=== PATIENT | female | born 1990 | race African-American/Black ===

== ENCOUNTER 2018-06-13 09:01 | Outpatient (CLI) | payer OTHER | END 2018-06-13 09:02 | disposition home or self-care (01) | LOC: BICULT 09:01 | PROVIDERS: ATTEND Family Medicine | DX: Z34.82 Encounter for supervision of other normal pregnancy, second trimester (principal); Z3A.20 20 weeks gestation of pregnancy | CPT/HCPCS: 76805 ==

== ENCOUNTER 2018-10-10 10:11 | Day surgery (SDC) | payer OTHER ==
[2018-10-10 11:17] VITALS: BMI 35.7
[2018-10-10 11:19] LABS: Hemoglobin 11.4 g/dL (12.0-16.0); Mean Corpuscular HGB CONC 34.2 g/dL (32.0-36.0); Mean Corpuscular Hemoglobin 29.2 pg (27.0-31.0); Mean Corpuscular Volume 85.5 fL (78.0-98.0); Mean Platelet Volume 8.1 fL (7.4-10.4); Platelet Count 162 thou/uL (130-400); RBC Distribution Width 11.4 % (11.5-14.5); Red Blood Cell (RBC) Count 3.89 mill/uL (4.20-5.40); White Blood Cell (WBC) Count 5.8 thou/uL (4.8-10.8)
[2018-10-10 11:40] LABS: ALT (SGPT) 22 U/L (8-55); AST (SGOT) 20 U/L (5-34); Albumin 3.3 g/dL (3.5-5.0); Alkaline Phosphatase 113 U/L (40-150); Anion Gap 12 mmol/L (10-20); BUN (Urea Nitrogen) 4 mg/dL (7.0-18.7); Bilirubin, Total 0.5 mg/dL (0.2-1.2); Calc. Creatinine Clearance 162 mL/min (70-130); Calcium 10.1 mg/dL (7.8-10.44); Carbon Dioxide 23 mmol/L (22-29); Chloride 102 mmol/L (98-107); Estimated GFR-MDRD Greater than 90; Globulin 3.4 g/dL (2.4-3.5); Glucose 108 mg/dL (70-105); Potassium 3.4 mmol/L (3.5-5.1); Protein, Total 6.7 g/dL (6.0-8.3); Sodium 134 mmol/L (136-145)
--- NOTE | 2018-10-10 13:48 | ULT ---
OBSTETRIC SONOGRAM: SONOGRAPHIC BIOPHYSICAL PROFILE EXAM: HISTORY: evaluation. Third trimester gestation. distress. FINDINGS: Multiple transabdominal sonographic views of the gravid uterus show a single intrauterine gestation, in cephalic presentation. The cervix is partially obscured by the cranium. The cervix is clos ed and 5.1 cm. Grade 2 placenta is anterior. Amniotic fluid is within normal limits. Advanced feta l age limits anatomic detail. Air-fluid level index is 7.8. There is a 3.6 cm pocket at the left up per quadrant. Heart motion is at 143 beats per minute. Measurements are as follows: BIPARIETAL DIAMETER: 36 weeks 0 days HEAD CIRCUMFERENCE: 37 weeks 3 days ABDOMINAL CIRCUMFERENCE: 37 weeks 2 days FEMUR LENGTH: 36 weeks 5 days ESTIMATED WEIGHT: 3094 g (6 lbs 13 oz) HADLOCK: 51% Good movement, tone, and breathing movement were demonstrated. IMPRESSION: 1. Single viable intrauterine gestation, with estimated gestational age based on today's sonogram of 37 weeks 0 days. 2. Sonographic biophysical profile score 8/8. POS: [facility]
== END 2018-10-10 14:15 | disposition home or self-care (01) ==
LOC: L&D/OP 10:11
PROVIDERS: ATTEND Family Medicine
DX: O16.3 Unspecified maternal hypertension, third trimester (principal); O99.820 Streptococcus B carrier state complicating pregnancy; O99.283 Endocrine, nutritional and metabolic diseases complicating pregnancy, third trimester; E89.0 Postprocedural hypothyroidism; Z3A.37 37 weeks gestation of pregnancy; Z79.899 Other long term (current) drug therapy
CPT/HCPCS: 36415; 76805; 76819; 80053; 84156; 85027; 99283

== ENCOUNTER 2018-10-22 22:00 | Inpatient (IN) | payer OTHER ==
[2018-10-23] MEDS ORDERED: Butorphanol Tartrate 1 MG/ML VIAL SLOW IVP PRN (02:17)
[2018-10-23] MEDS ORDERED: NS / Oxytocin 40 units/1000ml 1,000 ML IV PRN (02:17)
[2018-10-23] MEDS ORDERED: Carboprost 250 MCG/ML AMP IM PRN (02:17)
[2018-10-23] MEDS ORDERED: HYDROcodone/Acetaminophen 5/325 mg Tablet PO PRN ×3 (02:17→11:07)
[2018-10-23] MEDS ORDERED: NS w/ Oxytocin 10 units 500 ML IV SCH ×2 (02:17)
[2018-10-23] MEDS ORDERED: Diphenoxylate HCl/Atropine Tablet PO PRN (02:17)
[2018-10-23] MEDS ORDERED: Ibuprofen 800 MG TAB PO PRN (02:17)
[2018-10-23] MEDS ORDERED: Lidocaine 1% (PF) 30 ML VIAL SC PRN (02:17)
[2018-10-23] MEDS ORDERED: Misoprostol 200 MCG TAB PR PRN (02:17)
[2018-10-23] MEDS ORDERED: Ondansetron PF 4 MG/2 ML Vial IVP PRN ×2 (02:17→11:07)
[2018-10-23 02:25] VITALS: BMI 34.9
[2018-10-23] MEDS ORDERED: Penicillin G Potassium 5 MILL.UNITS in Sodium Chloride 0.9% 100 ML IVPB SCH (02:30)
[2018-10-23 03:17] LABS: Amphetamine Not Detected (NotDetected); Barbiturates Screen Not Detected (NotDetected); Benzodiazepine Screen Not Detected (NotDetected); Cocaine Metabolite Screen Not Detected (NotDetected); Medtox Control Line Valid? VALID (VALID); Medtox Reader # READER 1; Methadone Not Detected (NotDetected); Methamphetamine Not Detected (NotDetected); Opiate Screen Not Detected (NotDetected); Oxycodone Screen Not Detected (NotDetected); Phencyclidine (PCP) Not Detected (NotDetected); THC/Cannabinoid Screen Not Detected (NotDetected); Tricyclic Screen Not Detected (NotDetected)
[2018-10-23] MEDS: Lactated Ringer's 1,000 ML IV SCH ×2 (03:20→12:36)
[2018-10-23 03:39] LABS: Mean Corpuscular HGB CONC 35.7 g/dL (32.0-36.0); Mean Corpuscular Hemoglobin 30.1 pg (27.0-31.0); Mean Corpuscular Volume 84.4 fL (78.0-98.0); Mean Platelet Volume 8.1 fL (7.4-10.4); Platelet Count 166 thou/uL (130-400); RBC Distribution Width 11.7 % (11.5-14.5); Red Blood Cell (RBC) Count 3.66 mill/uL (4.20-5.40)
[2018-10-23 04:19] LABS: HBSAg Index 0.34 S/CO (0-0.99); Hep B Surf Ag Non-Reactive S/CO (NonReactive)
[2018-10-23 06:35] LABS: Syphilis Antibody Nonreactive (Nonreactive); Syphilis Antibody Index 0.02 S/CO (<1.00 Non-Reactive)
[2018-10-23] MEDS: Penicillin G 2.5 MILL.units 2.5 MILL.UNITS in Premix Bag 1 BAG IVPB SCH ×2 (07:42→12:36)
[2018-10-23] MEDS ORDERED: NS / Oxytocin 40 units/1000ml 1,000 ML IV SCH (11:07)
[2018-10-23] MEDS ORDERED: Bisacodyl 10 MG SUPP PR PRN (11:07)
[2018-10-23] MEDS ORDERED: diphenhydrAMINE 25 MG CAP PO PRN (11:07)
[2018-10-23] MEDS ORDERED: Milk Of Magnesia 30 ML UDCUP PO PRN (11:07)
[2018-10-23] MEDS ORDERED: Lanolin Ointment 7 GM TUBE TOP PRN (11:07)
[2018-10-23] MEDS ORDERED: Benzocaine/Menthol 20-0.5% 60 ML CAN TOP PRN (11:07)
[2018-10-23] MEDS: Ibuprofen 800 MG TAB PO SCH (17:19)
[2018-10-23] MEDS: Ferrous Sulfate 325 MG TAB PO SCH (17:23)
[2018-10-23] MEDS: Docusate Calcium (SURFAK) 240 MG CAP PO SCH (21:28)
[2018-10-24] MEDS: Ibuprofen 800 MG TAB PO SCH ×4 (00:27→14:56)
[2018-10-24 07:42] LABS: Hemoglobin 10.4 g/dL (12.0-16.0); Mean Corpuscular HGB CONC 35.6 g/dL (32.0-36.0); Mean Corpuscular Hemoglobin 30.4 pg (27.0-31.0); Mean Corpuscular Volume 85.4 fL (78.0-98.0); Mean Platelet Volume 8.4 fL (7.4-10.4); Platelet Count 154 thou/uL (130-400); RBC Distribution Width 11.7 % (11.5-14.5); Red Blood Cell (RBC) Count 3.42 mill/uL (4.20-5.40); White Blood Cell (WBC) Count 7.2 thou/uL (4.8-10.8)
[2018-10-24] MEDS: Ferrous Sulfate 325 MG TAB PO SCH (08:16)
[2018-10-24] MEDS: Docusate Calcium (SURFAK) 240 MG CAP PO SCH (08:16)
[2018-10-24] MEDS ORDERED: Prenatal Vitamin 1 TAB PO SCH (09:00)
[2018-10-24 17:24] VITALS: BP 131/86; TEMP 98.7
== END 2018-10-24 17:20 | disposition home or self-care (01) | DRG 807 ==
LOC: L&D 10-23 02:08 → 3SW 10-23 11:08
PROVIDERS: ADMIT Family Medicine; ATTEND Family Medicine
PROC: 10E0XZZ Delivery of Products of Conception, External Approach (ICD-10-PCS; principal; 2018-10-23)
PROC: 3E033VJ Introduction of Other Hormone into Peripheral Vein, Percutaneous Approach (ICD-10-PCS; 2018-10-23)
DX: O99.824 Streptococcus B carrier state complicating childbirth (principal); O13.4 Gestational [pregnancy-induced] hypertension without significant proteinuria, complicating childbirth; O69.81X0 Labor and delivery complicated by cord around neck, without compression, not applicable or unspecified; Z3A.39 39 weeks gestation of pregnancy; Z37.0 Single live birth
CPT/HCPCS: 36415; 80306; 85027; 86780; 86850; 86900; 86901; 87340; J2001; J2540; J7050

== ENCOUNTER 2019-07-23 20:01 | Emergency (ER) | payer OTHER ==
[2019-07-23 20:43] LABS: Bilirubin Negative (Negative); Blood, Urine Negative (Negative); Clarity Clear (Clear); Glucose, Urine (Dipstick) Normal (Negative); Leukocyte Negative Leu/uL (Negative); Nitrite Negative (Negative); Protein, Urine (Dipstick) Negative (Neg-Trace)
[2019-07-23 20:44] LABS: Pregnancy Test - Urine (BHCG) Negative (Negative); Pregu Control Background? CLEAR/WHITE (CLR/WHITE); Pregu Control Bar Appear? YES (CONTROL BAR); Specific Gravity 1.016 (1.002-1.036)
[2019-07-23 20:46] LABS: Hemoglobin 11.9 g/dL (12.0-16.0); Mean Corpuscular HGB CONC 34.4 g/dL (32.0-36.0); Mean Corpuscular Hemoglobin 27.1 pg (27.0-31.0); Mean Corpuscular Volume 78.7 fL (78.0-98.0); Mean Platelet Volume 8.4 fL (7.4-10.4); Platelet Count 199 thou/uL (130-400); RBC Distribution Width 12.3 % (11.5-14.5); Red Blood Cell (RBC) Count 4.42 mill/uL (4.20-5.40); White Blood Cell (WBC) Count 4.7 thou/uL (4.8-10.8)
[2019-07-23 21:04] LABS: Eosinophils 2 % (0-10); Lymphocytes 54 % (21-51); MDiff Complete? YES; Monocytes 6 % (0-10); Neutrophil 38 % (42-75)
[2019-07-23 21:05] LABS: ALT (SGPT) 20 U/L (8-55); AST (SGOT) 19 U/L (5-34); Alkaline Phosphatase 128 U/L (40-150); Anion Gap 10 mmol/L (10-20); BUN (Urea Nitrogen) 6 mg/dL (7.0-18.7); Bilirubin, Total 0.6 mg/dL (0.2-1.2); Calc. Creatinine Clearance 0 mL/min (70-130); Carbon Dioxide 29 mmol/L (22-29); Chloride 104 mmol/L (98-107); Estimated GFR-MDRD Greater than 90; Globulin 2.6 g/dL (2.4-3.5); Glucose 103 mg/dL (70-105); Lipase 32 U/L (8-78); Potassium 3.2 mmol/L (3.5-5.1); Protein, Total 6.6 g/dL (6.0-8.3); Sodium 140 mmol/L (136-145)
== END 2019-07-23 22:10 | disposition home or self-care (01) ==
LOC: ERS 20:01
DX: R10.30 Lower abdominal pain, unspecified (principal); I10 Essential (primary) hypertension; F32.9 Major depressive disorder, single episode, unspecified; Z87.891 Personal history of nicotine dependence
CPT/HCPCS: 36415; 80053; 81003; 81025; 83690; 85025; 99284

== ENCOUNTER 2019-11-18 14:55 | Emergency (ER) | payer OTHER, SELFPAY ==
--- NOTE | 2019-11-18 16:00 | RAD ---
RIGHT KNEE 4 VIEWS: HISTORY: Injury and right knee pain. FINDINGS/IMPRESSION: No fracture or dislocation is seen. No joint effusion is present. POS: [facility]
== END 2019-11-18 16:04 | disposition home or self-care (01) ==
LOC: ERS 14:55
DX: S86.911A Strain of unspecified muscle(s) and tendon(s) at lower leg level, right leg, initial encounter (principal); I10 Essential (primary) hypertension; F32.9 Major depressive disorder, single episode, unspecified; Z87.891 Personal history of nicotine dependence; X58.XXXA Exposure to other specified factors, initial encounter

== ENCOUNTER 2019-12-27 12:01 | Emergency (ER) | payer MEDICAID, SELFPAY ==
[2019-12-27 12:34] LABS: #Basophils 0.1 thou/uL (0.0-0.2); #Lymphocytes 2.8 thou/uL (1.20-3.40); #Monocytes 0.6 thou/uL (0.11-0.59); %Basophils 0.6 % (0.0-1.0); %Eosinophils 0.5 % (0.0-10.0); %Lymphocytes 29.5 % (21.0-51.0); %Monocytes 6.6 % (0.0-10.0); %Neutrophils 62.8 % (42.0-75.0); Hemoglobin 14.9 g/dL (12.0-16.0); Mean Corpuscular HGB CONC 36.1 g/dL (32.0-36.0); Mean Corpuscular Hemoglobin 27.6 pg (27.0-31.0); Mean Corpuscular Volume 76.4 fL (78.0-98.0); Platelet Count 369 thou/uL (130-400); RBC Distribution Width 12.8 % (11.5-14.5); Red Blood Cell (RBC) Count 5.39 mill/uL (4.20-5.40); White Blood Cell (WBC) Count 9.5 thou/uL (4.8-10.8)
[2019-12-27 12:56] LABS: ALT (SGPT) 53 U/L (8-55); AST (SGOT) 50 U/L (5-34); Albumin 5.2 g/dL (3.5-5.0); Alkaline Phosphatase 249 U/L (40-110); Anion Gap 21 mmol/L (10-20); BUN (Urea Nitrogen) 16 mg/dL (7.0-18.7); Calc. Creatinine Clearance 0 mL/min (70-130); Calcium 10.9 mg/dL (7.8-10.44); Carbon Dioxide 19 mmol/L (22-29); Chloride 99 mmol/L (98-107); Estimated GFR-MDRD Greater than 90; Globulin 3.6 g/dL (2.4-3.5); Glucose 89 mg/dL (70-105); Potassium 3.4 mmol/L (3.5-5.1); Protein, Total 8.8 g/dL (6.0-8.3); Sodium 136 mmol/L (136-145)
[2019-12-27 13:04] LABS: BHCG - Serum POSITIVE (NEGATIVE)
[2019-12-27 13:05] LABS: Pregs Control Background? CLEAR/WHITE (CLR/WHITE); Pregs Control Bar Appear? YES (CONTROL BAR)
[2019-12-27 13:12] LABS: Thyroid Stimulating Hormone Less than 0.0025 uIU/mL (0.35-4.94)
--- NOTE | 2019-12-27 14:32 | ULT ---
Exam: Transabdominal and endovaginal pelvic ultrasound HISTORY: patient. Abdominal pain. COMPARISON: None TECHNIQUE: Transabdominal and endovaginal imaging of the pelvis is performed. Ovaries are interrogate d with grayscale, color flow, Doppler imaging and spectral wave form analysis FINDINGS: Uterus: No myometrial masses. Uterus measurin.3 x 10.2 x 6.2 cm. Endometrium: Within the endometrium, there is a gestational sac, yolk sac and pole. [place]-rump length is 0.54 cm, corresponding to gestational age of 6 weeks 2 days heart tones: 118 bpm Subchorionic hemorrhage: None . Free fluid: None Right ovary: Normal echotexture Right ovary measurement: 1.9 x 1.5 x 2.6 cm Left ovary: Normal echotexture. There is a 2 cm dominant follicle in the left ovary. Left ovary measurements: 4.3 x 2.4 x 2.5 cm Ovarian Doppler: There is vascular flow to the left and right ovary. IMPRESSION: Single intrauterine gestation with heart tones. Gestational age by crown-rump lengt h is 6 weeks 2 days.
[2019-12-27 14:44] LABS: Bacteria/HPF 3+ HPF (None Seen); Bilirubin Negative (Negative); Blood, Urine Trace (Negative); Clarity Turbid (Clear); Glucose, Urine (Dipstick) Normal (Negative); Leukocyte 500 Leu/uL (Negative); Nitrite Negative (Negative); Protein, Urine (Dipstick) 70 mg/dL (Neg-Trace); Squamous Epithelial 21-50 HPF (0-3); Urobilinogen Normal mg/dL (Less than 2)
== END 2019-12-27 15:18 | disposition home or self-care (01) ==
LOC: ERS 12:01
DX: O23.41 Unspecified infection of urinary tract in pregnancy, first trimester (principal); O99.89 Other specified diseases and conditions complicating pregnancy, childbirth and the puerperium; R00.0 Tachycardia, unspecified; O99.281 Endocrine, nutritional and metabolic diseases complicating pregnancy, first trimester; O16.1 Unspecified maternal hypertension, first trimester; O99.341 Other mental disorders complicating pregnancy, first trimester; F32.9 Major depressive disorder, single episode, unspecified; Z3A.01 Less than 8 weeks gestation of pregnancy; Z87.891 Personal history of nicotine dependence
CPT/HCPCS: 76856; 80053; 81003; 81015; 84443; 84702; 84703; 85025; 87086; 93005; 94760; 96360; 96361

== ENCOUNTER 2020-05-06 11:24 | Inpatient (IN) | payer OTHER ==
[2020-05-06 11:57] VITALS: BMI 31.1
[2020-05-06 12:29] LABS: #Eosinphils 0.1 thou/uL (0.0-0.7); #Lymphocytes 1.7 thou/uL (1.20-3.40); #Monocytes 0.5 thou/uL (0.11-0.59); #Neutrophils 3.8 thou/uL (1.40-6.50); %Basophils 0.6 % (0.0-1.0); %Lymphocytes 27.7 % (21.0-51.0); %Monocytes 7.9 % (0.0-10.0); %Neutrophils 62.8 % (42.0-75.0); Hemoglobin 11.6 g/dL (12.0-16.0); Mean Corpuscular HGB CONC 35.7 g/dL (32.0-36.0); Mean Corpuscular Hemoglobin 29.9 pg (27.0-31.0); Mean Corpuscular Volume 83.7 fL (78.0-98.0); Mean Platelet Volume 7.9 fL (7.4-10.4); Platelet Count 156 thou/uL (130-400); RBC Distribution Width 11.6 % (11.5-14.5); Red Blood Cell (RBC) Count 3.87 mill/uL (4.20-5.40)
[2020-05-06 12:49] LABS: ALT (SGPT) 9 U/L (8-55); AST (SGOT) 11 U/L (5-34); Albumin 3.4 g/dL (3.5-5.0); Alkaline Phosphatase 124 U/L (40-110); Anion Gap 8 mmol/L (10-20); BUN (Urea Nitrogen) 6 mg/dL (7.0-18.7); Bilirubin, Total 0.6 mg/dL (0.2-1.2); Calc. Creatinine Clearance 185 mL/min (70-130); Calcium 8.7 mg/dL (7.8-10.44); Carbon Dioxide 24 mmol/L (22-29); Chloride 107 mmol/L (98-107); Estimated GFR-MDRD Greater than 90; Globulin 2.7 g/dL (2.4-3.5); Glucose 102 mg/dL (70-105); Potassium 3.1 mmol/L (3.5-5.1); Protein, Total 6.1 g/dL (6.0-8.3); Sodium 136 mmol/L (136-145)
[2020-05-06 13:08] LABS: Free T4 (Free Thyroxine) 1.48 ng/dL (0.70-1.48); Thyroid Stimulating Hormone Less than 0.0025 uIU/mL (0.35-4.94)
--- NOTE | 2020-05-06 13:20 | ULT ---
Exam: Limited OB ultrasound HISTORY: GUILLERMO, growth. COMPARISON: None. TECHNIQUE: Transabdominal imaging of the gravid uterus is performed. FINDINGS: Limited evaluation of the cervix. presentation: Cephalic. Anterior placenta. No evidence of previa. Amniotic fluid index: 11.8 cm. heart tones: 140 bpm. biometry: BPD 6.50 cm, 6 weeks 2 days Head circumference 23.20 cm, 25 weeks 2 days Abdominal circumference 21.82 cm, 26 weeks 2 days Femur length 4.63 cm, 25 weeks 3 days Estimated weight is 862 g. Average age by sonography is 25 weeks 5 days. IMPRESSION: 1. Cephalic presentation. 2. Amniotic fluid index is 11.8 cm. 3. Average age by sonography is 25 weeks 5 days. Estimated weight is 862 g. 4. Limited evaluation of the cervix due to shadowing from cephalic presentation. Transcribed Date/Time: 05/06/2020 1:26 PM
[2020-05-06] MEDS ORDERED: Betamet Acet/Betamet Na Ph 30 MG/5 ML VIAL ONE (14:26)
[2020-05-06] MEDS ORDERED: Betamet Acet/Betamet Na Ph 30 MG/5 ML VIAL IM SCH (14:30)
[2020-05-06] MEDS: hydrALAZINE 20 MG/ML VIAL SLOW IVP PRN ×2 (16:06→16:28)
[2020-05-06] MEDS ORDERED: Docusate 100 MG CAP PO PRN (16:07)
[2020-05-06] MEDS ORDERED: Acetaminophen 500 MG TAB PO PRN (16:07)
[2020-05-06] MEDS ORDERED: Promethazine HCl 25 MG/ML VIAL IM PRN (16:07)
[2020-05-06] MEDS ORDERED: Ondansetron PF 4 MG/2 ML Vial IVP PRN (16:07)
[2020-05-06] MEDS ORDERED: hydrALAZINE 20 MG/ML VIAL SLOW IVP PRN ×2 (16:07→17:16)
[2020-05-06] MEDS ORDERED: Lactated Ringer's 1,000 ML IV SCH (16:15)
[2020-05-06 17:35] LABS: HBSAg Index 0.15 S/CO (0-0.99); Hep B Surf Ag Non-Reactive S/CO (NonReactive)
[2020-05-06 17:37] LABS: Syphilis Antibody Nonreactive (Nonreactive); Syphilis Antibody Index 0.02 S/CO (<1.00 Non-Reactive)
[2020-05-06] MEDS ORDERED: Magnesium Sulfate 20 gm/500 ml 20 GM/500 ML BAG ONE (18:45)
[2020-05-06] MEDS ORDERED: Labetalol HCl 100 MG/20 ML VIAL SLOW IVP PRN (19:29)
[2020-05-06 19:38] VITALS: BP 171/102
[2020-05-06 20:06] LABS: Amphetamine Not Detected (NotDetected); Barbiturates Screen Not Detected (NotDetected); Benzodiazepine Screen Not Detected (NotDetected); Cocaine Metabolite Screen Not Detected (NotDetected); Medtox Control Line Valid? VALID (VALID); Medtox Reader # READER 4; Methadone Not Detected (NotDetected); Methamphetamine Not Detected (NotDetected); Opiate Screen Not Detected (NotDetected); Oxycodone Screen Not Detected (NotDetected); Phencyclidine (PCP) Not Detected (NotDetected); THC/Cannabinoid Screen Not Detected (NotDetected); Tricyclic Screen Not Detected (NotDetected)
[2020-05-06] MEDS ORDERED: Labetalol 100 MG TAB PO SCH (21:00)
[2020-05-07] MEDS ORDERED: Labetalol 100 MG TAB PO SCH (03:00)
[2020-05-07] MEDS ORDERED: Betamet Acet/Betamet Na Ph 30 MG/5 ML VIAL IM SCH (14:00)
== END 2020-05-06 21:30 | disposition short-term general hospital (02) | DRG 833 ==
LOC: L&D/OP 11:24 → L&D 16:29
PROVIDERS: ADMIT Family Medicine; ATTEND Family Medicine
DX: O99.282 Endocrine, nutritional and metabolic diseases complicating pregnancy, second trimester (principal); E02 Subclinical iodine-deficiency hypothyroidism; Z3A.25 25 weeks gestation of pregnancy
CPT/HCPCS: 36415; 76815; 80053; 80306; 82570; 84156; 84439; 84443; 84481; 85025; 86780; 86850; 86900; 86901; 87340; J0360; J0702; J3475

== ENCOUNTER 2020-07-09 09:27 | Day surgery (SDC) | payer OTHER ==
[2020-07-09 10:55] VITALS: BMI 33.5
== END 2020-07-09 11:10 | disposition left against medical advice (07) ==
LOC: L&D/OP 09:27
PROVIDERS: ATTEND Family Medicine
DX: O99.89 Other specified diseases and conditions complicating pregnancy, childbirth and the puerperium (principal); R03.0 Elevated blood-pressure reading, without diagnosis of hypertension; Z3A.00 Weeks of gestation of pregnancy not specified
CPT/HCPCS: 99282

== ENCOUNTER 2020-07-20 12:17 | Inpatient (IN) | payer OTHER ==
[2020-07-20 13:42] VITALS: BMI 33.5
[2020-07-20 14:27] LABS: Creatinine, Urine 28.11 mg/dL (47-110); Protein, Urine Random Quant Less than 10 mg/dL (1-14)
--- NOTE | 2020-07-20 15:09 | ULT ---
[facility] OB Ltd ULTRASOUND BIOPHYSICAL PROFILE AND DOPPLER: HISTORY: Hypertension, superimposed preeclampsia FINDINGS: A single live intrauterine gestation is seen with measurements corresponding to an estimated gestatio nal age of 33 weeks 4 daysand SOMMER at 09/03/2020. The estimated weight measures 2733 g or 6 pounds ounces (32% by Hadlock criteria). biometry: BPD: 9.23 cm, 37 weeks 3 days HC: 29.05 cm, 32 weeks 0 days AC: 32.7 cm, 36 weeks 4 days FL: 6.71 cm, 34 weeks 4 days heart rate: 141bpm Placenta: Anterior Placenta previa: No GUILLERMO: 18cm OB biophysical profile: tone: 0 breathin movements: 0 Amniotic fluid: 2 The peak systolic velocities in the umbilical artery measures 72 cm/s and the placental end, 88 seen per second in the middle and 66 cm/s and the end and S/D ratios of 2.13, 3.07 and 2.12 respectively. IMPRESSION: Single live intrauterine gestation of 33 weeks 4 daysestimated gestational age and SOMMER at 09/03/2020 The ultrasound biophysical profile score is 2 out of 8. A verbal report was given by the course instructor to the patient's nurse Anisa in labor and delivery, at t he time of the exam.
[2020-07-20] MEDS ORDERED: Ondansetron PF 4 MG/2 ML Vial IVP PRN ×3 (15:17→21:11)
[2020-07-20] MEDS ORDERED: hydrALAZINE 20 MG/ML VIAL SLOW IVP PRN (15:17)
[2020-07-20] MEDS ORDERED: Promethazine HCl 25 MG/ML VIAL IM PRN ×3 (15:17→21:11)
[2020-07-20] MEDS ORDERED: Lactated Ringer's 1,000 ML IV SCH (15:30)
[2020-07-20] MEDS ORDERED: Bicitra 30 ML UDCUP PO SCH (15:30)
[2020-07-20] MEDS ORDERED: CEFAZOLIN 2 GM in Premix Bag 1 BAG IVPB SCH (15:30)
[2020-07-20 15:55] LABS: Hemoglobin 12.2 g/dL (12.0-16.0); Mean Corpuscular HGB CONC 35.8 g/dL (32.0-36.0); Mean Corpuscular Hemoglobin 30.1 pg (27.0-31.0); Mean Corpuscular Volume 84.1 fL (78.0-98.0); Mean Platelet Volume 8.5 fL (7.4-10.4); Platelet Count 176 thou/uL (130-400); Red Blood Cell (RBC) Count 4.05 mill/uL (4.20-5.40); White Blood Cell (WBC) Count 7.5 thou/uL (4.8-10.8)
[2020-07-20] MEDS ORDERED: Oxytocin 10 UNITS/ML VIAL ONE ×2 (15:55→17:19)
[2020-07-20] MEDS ORDERED: PHENYLEPHRINE-NS 100 MCG/ML 10 ML SYRINGE ONE (15:55)
[2020-07-20] MEDS ORDERED: EPHEDRINE 25 MG/5 ML SYRINGE ONE (15:55)
[2020-07-20] MEDS ORDERED: Ondansetron PF 4 MG/2 ML Vial ONE (15:55)
[2020-07-20] MEDS ORDERED: Ketorolac Tromethamine 30 MG/ML VIAL ONE (15:55)
[2020-07-20] MEDS ORDERED: HYDROmorphone 2 MG/ML VIAL SLOW IVP PRN (16:15)
[2020-07-20] MEDS ORDERED: Meperidine HCl/PF 25 MG/ML VIAL SLOW IVP PRN (16:15)
[2020-07-20] MEDS ORDERED: Ondansetron HCl/PF 4 MG/2 ML Vial IVP PRN (16:15)
[2020-07-20] MEDS ORDERED: L&D-Morphine 4 MG/ML VIAL SLOW IVP PRN (16:15)
[2020-07-20] MEDS ORDERED: Lidocaine 1% PF 5 ML VIAL ONE ×2 (16:30→16:36)
[2020-07-20 16:36] LABS: Syphilis Antibody Nonreactive (Nonreactive); Syphilis Antibody Index 0.03 S/CO (<1.00 Non-Reactive)
[2020-07-20] MEDS ORDERED: Succinylcholine Chloride 20 MG/ML 10 ml SYRINGE FS ONE (16:41)
[2020-07-20] MEDS ORDERED: PROPOFOL 200 MG/20 ML VIAL ONE (16:41)
[2020-07-20] MEDS ORDERED: Carboprost 250 MCG/ML AMP ONE ×2 (16:54→16:55)
[2020-07-20] MEDS ORDERED: Fentanyl 100 MCG/2 ML VIAL ONE ×2 (17:20→17:43)
[2020-07-20 17:35] LABS: Actual Bicarbonate (HCO3a) 26.5 mEq/L (22-28); Base Excess (BEa) -0.4 mEq/L (-2.0 to +3.0)
[2020-07-20 17:38] LABS: Actual Bicarbonate (HCO3v) 25 mEq/L (22-28); Base Excess -1.4 mEq/L (-2.0 to +3.0); pH (Cord, venous) 7.34 (7.32-7.43)
--- NOTE | 2020-07-20 17:40 | PDOC.OPDEL ---
OB Operative/Delivery Note Delivery Dr/Surgeon: Carlos (resident)Terrell Pre-Delivery Diagnosis: scheduled section (after BPP of 12/16.) Procedure/Post Delivery Dx: primary low transverse CS Weeks gestation: 36 (36.3 wga) Anesthesia: other (general) - Additional Findings/Plan Placenta delivered: spontaneous findings: low transverse hysterotomy without extension Compilations/Other Findings: Date of Procedure: 07/20/2020 Resident Surgeon: Carlos, PGY2 Attending Surgeon: Dr. Tejada Procedure: Primary low transverse caesarean section Preoperative Diagnosis: 1) intrauterine 2) Pre-eclampsia superimposed on chronic hypertension 3) biophysical profile of 12/16 Postoperative Diagnosis: 1) intrauterine , delivered 2) Pre-eclampsia superimposed on chronic hypertension 3) biophysical profile of 12/16 Anesthesia: general Quantitative Blood Loss: 910 mL Complications: None Specimens: Cord blood sent to lab for blood type. Cord gases sent for ABG and VBG. Findings: Grossly normal female with Apgars of 8, 7, and 9 at 1, 5, and 10 minutes of life respectively. requiring oxygen and suspected persistent pulmonary hypertension of the ; admitted to NICU. Grossly normal placenta with 3 vessel cord discarded. Drains: De Oliveira to gravity draining clear urine Indications: The patient is a 29 year old female at 36.3 weeks gestation who presents for nonreactive NST in clinic followed by BPP with score 2/10. Procedure in Detail: After risks, benefits, and alternatives were explained to the patient, she gave informed consent. Pre-operative antibiotics included Cefazolin 2 gram IV. The patient was taken to the operating room, and spinal anesthesia was attempted several times without success. Patient consented to undergo general anesthesia. She was placed in the supine position with a left tilt and prepped and draped in usual sterile fashion. After patient was anaesthetized and intubated, a Pfannenstiel incision was made with a scalpel and carried down to the level of the fascia which was sharply nicked. The fascial cut was extended bilaterally with Starkey sissors. The inferior and superior edges of the cut fascial edges were elevated with Reji clamps and the underlying rectus muscles were sharply and bluntly dissected free. The recti were divided digitally and retracted manually. The peritoneum was entered bluntly and retracted manually. Bladder blade was placed. A low transverse score was made with the scalpel, and the uterus was entered in the midline with the scalpel. Clear fluid was seen. The hysterotomy was extended manually. The was noted to be vertex and was easily delivered by fundal pressure. Mouth and nares were bulb suctioned. Cord clamped and cut; and grossly normal female was taken to team at the [facility]. Cord gases were drawn, and cord blood was obtained. Placenta was spontaneously extracted, found to be intact with 3 vessel cord and discarded. The uterus was externalized, and the endometrium was curetted with a dry lap. The bladder blade was replaced and the uterus was closed with a running locking #1 Monocryl suture. Following this hemostasis was noted. The abdomen was irrigated with saline and suctioned free of clots. The uterus was internalized, and the hysterotomy was again noted to be hemostatic. The peritoneum was closed using 3-0 vicryl in a running nonlocking fashion. The fascia was closed with a running non-locking 0-PDS suture. The subcutaneous tissue was irrigated, and bleeders were cauterized. The skin was approximated with tyler, and a pressure dressing was placed. All counts were correct. The patient tolerated the procedure well and was taken to the recovery room in stable condition. Post delivery plan: routine recovery
[2020-07-20] MEDS ORDERED: cloNIDine 0.1 MG TAB PO PRN (18:11)
[2020-07-20 19:12] LABS: SARS-CoV-2 NAA Rapid Test Not Detected (NotDetected)
[2020-07-20] MEDS ORDERED: Zolpidem Tartrate 5 MG TAB PO PRN (19:35)
[2020-07-20] MEDS ORDERED: HYDROmorphone 10 mg/100 ml CADD IVPB PRN (19:35)
[2020-07-20] MEDS ORDERED: diphenhydrAMINE 50 MG/ML VIAL IM PRN (19:35)
[2020-07-20] MEDS ORDERED: diphenhydrAMINE 25 MG CAP PO PRN (19:35)
[2020-07-20] MEDS ORDERED: diphenhydrAMINE 50 MG/ML VIAL IVP PRN (19:35)
[2020-07-20] MEDS ORDERED: Naloxone HCl 0.4 mg/ml Vial IV PRN (19:35)
[2020-07-20] MEDS ORDERED: Communication Order-Pharmacy FS SCH (19:45)
[2020-07-20 20:48] LABS: HBSAg Index 0.13 S/CO (0-0.99); Hep B Surf Ag Non-Reactive S/CO (NonReactive)
[2020-07-20] MEDS ORDERED: HYDROcodone/Acetaminophen 5/325 mg Tablet PO PRN ×2 (21:11)
[2020-07-20] MEDS ORDERED: NS / Oxytocin 40 units/1000ml 1,000 ML IV SCH (21:11)
[2020-07-20] MEDS ORDERED: Docusate Calcium (SURFAK) 240 MG CAP PO SCH (21:30)
[2020-07-20] MEDS ORDERED: Ferrous Sulfate 325 MG TAB PO SCH (21:30)
[2020-07-20] MEDS: Ketorolac Tromethamine 30 MG/ML VIAL IVP SCH (23:38)
[2020-07-20] MEDS: Simethicone Chewable 80 MG TAB PO PRN (23:41)
[2020-07-20] MEDS: cloNIDine 0.1 MG TAB PO PRN (23:41)
[2020-07-21] MEDS: hydrALAZINE 20 MG/ML VIAL SLOW IVP SCH ×2 (00:43→00:44)
[2020-07-21] MEDS: Simethicone Chewable 80 MG TAB PO PRN ×3 (05:36→20:13)
[2020-07-21] MEDS: Ketorolac Tromethamine 30 MG/ML VIAL IVP SCH ×2 (05:37→14:09)
[2020-07-21 06:31] LABS: Hemoglobin 8.7 g/dL (12.0-16.0); Mean Corpuscular HGB CONC 34.6 g/dL (32.0-36.0); Mean Corpuscular Hemoglobin 29.5 pg (27.0-31.0); Mean Corpuscular Volume 85.3 fL (78.0-98.0); Mean Platelet Volume 8.2 fL (7.4-10.4); Platelet Count 131 thou/uL (130-400); RBC Distribution Width 11.7 % (11.5-14.5); Red Blood Cell (RBC) Count 2.96 mill/uL (4.20-5.40)
[2020-07-21] MEDS ORDERED: Potassium Chloride 20 MEQ TAB PO SCH (08:30)
[2020-07-21] MEDS ORDERED: Adacel (T-DAP) 0.5 ML SYRINGE IM ONE (09:00)
[2020-07-21] MEDS: Prenatal Vitamin 1 TAB PO SCH (09:19)
[2020-07-21] MEDS: Docusate Calcium (SURFAK) 240 MG CAP PO SCH ×2 (09:19→20:13)
[2020-07-21] MEDS: NIFEdipine XL 60 MG TAB PO SCH (09:19)
[2020-07-21] MEDS: Potassium Chloride 20 MEQ TAB PO SCH ×2 (09:20→17:00)
[2020-07-21] MEDS: Ferrous Sulfate 325 MG TAB PO SCH ×2 (09:21→17:00)
[2020-07-21] MEDS ORDERED: HYDROcodone/Acetaminophen 5/325 mg Tablet PO PRN (09:38)
[2020-07-21] MEDS: HYDROcodone/Acetaminophen 5/325 mg Tablet PO PRN ×2 (09:54→20:13)
[2020-07-21] MEDS: Ibuprofen 800 MG TAB PO PRN ×2 (15:30→22:10)
[2020-07-21] MEDS ORDERED: Ibuprofen 800 MG TAB PO SCH (18:00)
[2020-07-22] MEDS: HYDROcodone/Acetaminophen 5/325 mg Tablet PO PRN ×3 (02:16→21:24)
[2020-07-22] MEDS: Simethicone Chewable 80 MG TAB PO PRN ×3 (02:16→20:23)
[2020-07-22 08:44] LABS: ALT (SGPT) 10 U/L (8-55); AST (SGOT) 22 U/L (5-34); Albumin 2.9 g/dL (3.5-5.0); Alkaline Phosphatase 116 U/L (40-110); Anion Gap 11 mmol/L (10-20); BUN (Urea Nitrogen) 5 mg/dL (7.0-18.7); Bilirubin, Total 0.2 mg/dL (0.2-1.2); Calc. Creatinine Clearance 175 mL/min (70-130); Calcium 8.2 mg/dL (7.8-10.44); Carbon Dioxide 26 mmol/L (22-29); Chloride 104 mmol/L (98-107); Estimated GFR-MDRD Greater than 90; Globulin 2.4 g/dL (2.4-3.5); Glucose 73 mg/dL (70-105); Potassium 3.4 mmol/L (3.5-5.1); Protein, Total 5.3 g/dL (6.0-8.3); Sodium 138 mmol/L (136-145)
[2020-07-22] MEDS: Potassium Chloride 20 MEQ TAB PO SCH ×2 (14:31→18:07)
[2020-07-22] MEDS: NIFEdipine XL 60 MG TAB PO SCH (14:31)
[2020-07-22] MEDS: Docusate Calcium (SURFAK) 240 MG CAP PO SCH ×2 (14:31→20:23)
[2020-07-22] MEDS: Ferrous Sulfate 325 MG TAB PO SCH ×2 (14:31→18:07)
[2020-07-22] MEDS: Prenatal Vitamin 1 TAB PO SCH (14:32)
[2020-07-22] MEDS: Ibuprofen 800 MG TAB PO PRN ×2 (14:33→20:27)
[2020-07-22] MEDS: cloNIDine 0.1 MG TAB PO PRN (16:18)
[2020-07-23] MEDS: HYDROcodone/Acetaminophen 5/325 mg Tablet PO PRN ×2 (05:02→11:02)
[2020-07-23] MEDS: Simethicone Chewable 80 MG TAB PO PRN ×2 (06:32→11:02)
[2020-07-23 07:50] VITALS: TEMP 98.4
[2020-07-23] MEDS ORDERED: Methimazole 10 MG TAB PO SCH (09:00)
[2020-07-23] MEDS: Ferrous Sulfate 325 MG TAB PO SCH (09:19)
[2020-07-23] MEDS: Prenatal Vitamin 1 TAB PO SCH (09:19)
[2020-07-23] MEDS: Potassium Chloride 20 MEQ TAB PO SCH (09:19)
[2020-07-23] MEDS: NIFEdipine XL 60 MG TAB PO SCH (09:20)
[2020-07-23] MEDS: Docusate Calcium (SURFAK) 240 MG CAP PO SCH (09:20)
[2020-07-23] MEDS: Ibuprofen 800 MG TAB PO PRN (09:24)
[2020-07-23 11:55] VITALS: BP 122/76
== END 2020-07-23 18:10 | disposition home or self-care (01) | DRG 786 ==
LOC: L&D/OP 12:17 → L&D-LIB 15:19 → 3SW 21:41
PROVIDERS: ADMIT Family Medicine; ATTEND Family Medicine
PROC: 10D00Z1 Extraction of Products of Conception, Low, Open Approach (ICD-10-PCS; principal; 2020-07-20)
DX: O76 Abnormality in fetal heart rate and rhythm complicating labor and delivery (principal); O60.14X0 Preterm labor third trimester with preterm delivery third trimester, not applicable or unspecified; O10.92 Unspecified pre-existing hypertension complicating childbirth; Z20.828 Contact with and (suspected) exposure to other viral communicable diseases; O28.3 Abnormal ultrasonic finding on antenatal screening of mother; O11.4 Pre-existing hypertension with pre-eclampsia, complicating childbirth; O99.284 Endocrine, nutritional and metabolic diseases complicating childbirth; O99.824 Streptococcus B carrier state complicating childbirth; E05.90 Thyrotoxicosis, unspecified without thyrotoxic crisis or storm; Z3A.36 36 weeks gestation of pregnancy; Z37.0 Single live birth
CPT/HCPCS: 36415; 51702; 76815; 76819; 80053; 82570; 82805; 84156; 85027; 86780; 86850; 86900; 86901; 87340; 93975; 99285; J0690; J1885; J2270; J2405; J2590; J2704; J3010; J3490; U0002

== ENCOUNTER 2021-03-17 20:20 | Emergency (ER) | payer OTHER ==
[2021-03-17] MEDS ORDERED: Amlodipine 5 mg/Benazepril 10 mg CAP PO SCH (20:45)
[2021-03-17 21:09] LABS: #Basophils 0.1 thou/uL (0.0-0.2); #Eosinphils 0.3 thou/uL (0.0-0.7); #Lymphocytes 3.1 thou/uL (1.20-3.40); #Monocytes 0.3 thou/uL (0.11-0.59); #Neutrophils 2.5 thou/uL (1.40-6.50); %Basophils 1.6 % (0.0-1.0); %Eosinophils 4.8 % (0.0-10.0); %Lymphocytes 48.9 % (21.0-51.0); %Monocytes 5.1 % (0.0-10.0); %Neutrophils 39.5 % (42.0-75.0); Hemoglobin 11.4 g/dL (12.0-16.0); Mean Corpuscular HGB CONC 35.6 g/dL (32.0-36.0); Mean Corpuscular Hemoglobin 30.4 pg (27.0-31.0); Mean Corpuscular Volume 85.4 fL (78.0-98.0); Mean Platelet Volume 8.2 fL (7.4-10.4); Platelet Count 261 thou/uL (130-400); RBC Distribution Width 14.2 % (11.5-14.5); Red Blood Cell (RBC) Count 3.75 mill/uL (4.20-5.40); White Blood Cell (WBC) Count 6.3 thou/uL (4.8-10.8)
[2021-03-17 21:10] LABS: ALT (SGPT) Less than 7 U/L (8-55); AST (SGOT) 13 U/L (5-34); Albumin 4.4 g/dL (3.5-5.0); Alkaline Phosphatase 98 U/L (40-110); Anion Gap 15 mmol/L (10-20); BUN (Urea Nitrogen) 6 mg/dL (7.0-18.7); Bilirubin, Total 0.7 mg/dL (0.2-1.2); Calc. Creatinine Clearance 0 mL/min (70-130); Calcium 8.9 mg/dL (7.8-10.44); Carbon Dioxide 22 mmol/L (22-29); Chloride 106 mmol/L (98-107); Globulin 2.7 g/dL (2.4-3.5); Glucose 91 mg/dL (70-105); Protein, Total 7.1 g/dL (6.0-8.3); Sodium 140 mmol/L (136-145)
[2021-03-17 21:18] LABS: Potassium 2.7 mmol/L (3.5-5.1)
[2021-03-17] MEDS ORDERED: Potassium Chloride 20 MEQ TAB ONE (21:26)
[2021-03-17 22:07] LABS: Amphetamine Not Detected (NotDetected); Barbiturates Screen Not Detected (NotDetected); Benzodiazepine Screen Not Detected (NotDetected); Cocaine Metabolite Screen Not Detected (NotDetected); Medtox Reader # READER 1; Methadone Not Detected (NotDetected); Methamphetamine Not Detected (NotDetected); Opiate Screen Not Detected (NotDetected); Oxycodone Screen Not Detected (NotDetected); Phencyclidine (PCP) Not Detected (NotDetected); THC/Cannabinoid Screen Detected (NotDetected); Tricyclic Screen Not Detected (NotDetected)
[2021-03-17 22:08] LABS: Medtox Control Line Valid? VALID (VALID)
== END 2021-03-17 22:01 | disposition home or self-care (01) ==
LOC: ERS 20:20
DX: I10 Essential (primary) hypertension (principal); E05.90 Thyrotoxicosis, unspecified without thyrotoxic crisis or storm; Z87.891 Personal history of nicotine dependence
CPT/HCPCS: 71045; 80053; 80306; 84484; 85025; 93005; 94760